=== PATIENT | female | born 1990 | race Caucasian/White ===

== ENCOUNTER → 2017-11-03 | Outpatient (CLI) | payer MEDICAID | LOC: FIMAGING 12:45 | PROVIDERS: ATTEND Obstetrics & Gynecology | DX: O99.212 Obesity complicating pregnancy, second trimester (principal); Z3A.21 21 weeks gestation of pregnancy; Z90.49 Acquired absence of other specified parts of digestive tract ==

== ENCOUNTER → 2017-12-25 | Outpatient (CLI) | payer MEDICAID | LOC: FIMAGING 08:36 | PROVIDERS: ATTEND Obstetrics & Gynecology | DX: Z34.93 Encounter for supervision of normal pregnancy, unspecified, third trimester (principal); Z3A.28 28 weeks gestation of pregnancy ==

== ENCOUNTER 2018-01-02 07:55 | Observation (INO) | payer MEDICAID ==
[2018-01-02] MEDS ORDERED: ONDANSETRON 4 MG/2 ML VIAL IVP PRN (09:02)
[2018-01-02] MEDS ORDERED: LR 1,000 ML IV ONE (09:03)
[2018-01-02 09:36] LABS: PLATELET COUNT 217 10^3/uL (150-400)
--- NOTE | 2018-01-02 13:39 | GHP ---
DATE OF ADMISSION: 01/02/2018 OB TRIAGE NOTE OBSERVATION DIAGNOSIS: Intrauterine at 30 and 0/7 weeks' gestation with hyperemesis. HISTORY OF PRESENT ILLNESS: Sarah is a 27-year-old, 3, para 2-0-0-2, with an EDC of 03/13. She has had care at [facility], Dr. Worthy. Her course has b een complicated by hyperemesis. She has been hospitalized several times and she had a cholecystectom y in the 1st trimester of this . She is maintained on Zofran ODTs regularly scheduled, and also uses marijuana for nausea and vomiting. She ran out of her prescription and presented early in the morning of the with severe intractable nausea and vomiting. We lg labs. She was given IV hydration of a liter bolus and then maintenance, and given a dose of IV Zofran and patient is now fee ling much better. Has an appetite and wishes to go home. heart tones were 130s, reactive, mod erate variability, category 1. Contractions were negative. LABORATORY DATA: White blood cell count 10.4, hemoglobin 12.3, hematocrit 35.4, platelets 217. Chem istries were normal. Creatinine 0.4, BUN 5, potassium was 4.1, AST is 11, ALT 20. Her urine was 1+ protein, 1+ ketones, 1+ bacteria, and her toxicology was positive for THC. The patient has an appointment set up with her primary OB for next week, so she will be discharged ho me with a prescription for Zofran ODTs and instructions to hydrate and call her provider with other i ssues. ASSESSMENT AND PLAN: 27-year-old 3, para 2-0-0-2 at 30 and 0/7 weeks' gestation with intract able hyperemesis requiring Zofran ODTs maintenance. The patient is discharged home without complicat ions. /[id number]/MODL
== END 2018-01-02 12:50 | disposition home or self-care (01) ==
LOC: FLD 07:55
PROVIDERS: ADMIT Obstetrics & Gynecology; ATTEND Obstetrics & Gynecology
DX: O21.2 Late vomiting of pregnancy (principal); Z3A.30 30 weeks gestation of pregnancy
CPT/HCPCS: 80307; G0480; J2405

== ENCOUNTER → 2018-02-02 | Outpatient (CLI) | payer MEDICAID | LOC: FIMAGING 12:02 | PROVIDERS: ATTEND Obstetrics & Gynecology | DX: O99.89 Other specified diseases and conditions complicating pregnancy, childbirth and the puerperium (principal); Z3A.34 34 weeks gestation of pregnancy ==

== ENCOUNTER 2018-02-24 20:13 | Observation (INO) | payer MEDICAID | END 2018-02-24 23:09 | disposition home or self-care (01) | LOC: INTOOBSV 20:13 → FLD 20:13 | PROVIDERS: ADMIT Advanced Practice Midwife; ATTEND Advanced Practice Midwife | DX: O99.89 Other specified diseases and conditions complicating pregnancy, childbirth and the puerperium (principal); Z3A.00 Weeks of gestation of pregnancy not specified ==